=== PATIENT | female | born 1935 | race Caucasian/White ===

== ENCOUNTER 2022-12-26 09:14 | Inpatient (IN) | payer OTHER, MEDICAID ==
[~2022-12-26] VITALS: Ht 172.7 cm; Wt 113.0 kg
[~2022-12-26 09:14] MED LIST: ASPI-543 PO; ATOR20TA50 PO; CARB200T4 PO; FLUT0.05 NAS; FURO20TA3 PO; GLIP2.5T9 PO; HYDR-4296 PO; INSUINJ37 SC; IPRA0.00 IN; LOSA50TA46 PO; MECL1TAB32 PO; POTA10TA51 PO; TRAM50TA2 PO
[2022-12-26 09:57] VITALS: RESP 15; O2SAT 98
[2022-12-26 10:55] LABS: Potassium 4.4 mmol/L (3.5-5.1)
[2022-12-26 11:01] LABS: Albumin 3.4 g/dL (3.4-5.0); BUN/Creatinine Ratio 33.1 (10.0-20.0); Bilirubin, Total 0.8 mg/dL (0.2-1.0); Total Protein 6.6 g/dL (6.4-8.2)
[2022-12-26 11:02] LABS: Basophils # (auto) 0.1 10 ^3/uL (0-0.2); Basophils % (auto) 0.4 % (0.0-2.0); Eosinophils # (auto) 0.3 10 ^3/uL (0-0.8); Eosinophils % (auto) 2.1 % (0.0-7.0); Hematocrit 42.9 % (36.0-46.0); Hemoglobin 13.3 g/dL (12.2-16.2); Lymphocytes % (auto) 23.1 % (10.0-50.0); Mean Corpuscular Hgb Conc. 31.1 g/dL (32.0-36.0); Mean Corpuscular Volume 93.3 fL (80.0-100.0); Monocytes # (auto) 1.6 10 ^3/uL (0-1.3); Neutrophils # (auto) 8.2 10 ^3/uL (1.6-8.6); Neutrophils % (auto) 62.4 % (37.0-80.0); Nucleated Red Blood Cells % 0.1 %; Red Cell Distribution Width 16.3 % (11.8-14.3); White Blood Cell 13.2 10^3/uL (4.4-10.8)
[2022-12-26 11:31] LABS: INR 1.09 (0.9-1.15); Partial Thromboplastin Time 23.6 SEC (24.5-34.5); Prothrombin Time 11.4 sec (9.3-11.8)
[2022-12-26] MEDS ORDERED: NITROGLYCERIN 0.4 MG SL TAB SL PRN ×2 (12:15→12:45)
[2022-12-26] MEDS ORDERED: MORPHINE SULFATE INJ 2 MG/ml SYRG IV PRN ×2 (12:15→12:45)
[2022-12-26] MEDS ORDERED: DEXTROSE (50%) 50ML SYRG IV PRN (12:15)
[2022-12-26] MEDS ORDERED: SODIUM CHLORIDE 0.9% 1,000 ML IV ONE (13:00)
[2022-12-26] MEDS ORDERED: hydrALAZINE HCL 20 MG/ML VL IV PRN (13:00)
[2022-12-26] MEDS: SODIUM CHLORIDE 0.9% 1,000 ML IV SCH ×2 (13:00→23:20)
[2022-12-26 13:12] LABS: Cholesterol 91 mg/dL (< 200); Triglycerides 191 mg/dL (< 150)
[2022-12-26 13:15] LABS: HDL Cholesterol 42 mg/dL (40-59); LDL Cholesterol 38 mg/dL (< 100)
[2022-12-26] MEDS ORDERED: ACETAMINOPHEN 325 MG TAB PO PRN (13:15)
[2022-12-26] MEDS ORDERED: ONDANSETRON HCL 4 MG/2 ML VIAL IV PRN (13:15)
[2022-12-26] MEDS: InsuLIN REG 1unit/0.01ml Soln (100units/ml) SC SCH ×2 (17:15→22:21)
[2022-12-26] MEDS: ACCU-CHEK COMFORT CURVE STRIP VI SCH ×2 (17:18→22:20)
[2022-12-26 17:28] LABS: COVID19 ANTIGEN SOFIA FIA NEGATIVE (NEGATIVE)
[2022-12-26 20:10] VITALS: PULSE 83; RESP 22; O2SAT 97
[2022-12-27 06:08] LABS: Basophils # (auto) 0 10 ^3/uL (0-0.2); Basophils % (auto) 0.2 % (0.0-2.0); Eosinophils # (auto) 0.3 10 ^3/uL (0-0.8); Eosinophils % (auto) 3.3 % (0.0-7.0); Hematocrit 35.7 % (36.0-46.0); Hemoglobin 11.7 g/dL (12.2-16.2); Lymphocytes # (auto) 2.8 10 ^3/uL (0.4-5.4); Lymphocytes % (auto) 29.2 % (10.0-50.0); Mean Corpuscular Hemoglobin 30.1 pg (28.0-32.0); Mean Corpuscular Hgb Conc. 32.7 g/dL (32.0-36.0); Mean Corpuscular Volume 92.1 fL (80.0-100.0); Monocytes # (auto) 1.2 10 ^3/uL (0-1.3); Monocytes % (auto) 12.3 % (0.0-12.0); Neutrophils # (auto) 5.2 10 ^3/uL (1.6-8.6); Nucleated Red Blood Cells % 0.1 %; Red Blood Cells 3.88 10^6/uL (4.0-5.20); Red Cell Distribution Width 15.7 % (11.8-14.3); White Blood Cell 9.5 10^3/uL (4.4-10.8)
[2022-12-27 06:23] LABS: Albumin 2.9 g/dL (3.4-5.0); Calcium 8.4 mg/dL (8.5-10.1); Magnesium 2.3 mg/dL (1.6-2.6); Potassium 4.4 mmol/L (3.5-5.1)
[2022-12-27 06:28] LABS: BUN/Creatinine Ratio 34.3 (10.0-20.0); Bilirubin, Total 0.6 mg/dL (0.2-1.0); Total Protein 5.8 g/dL (6.4-8.2)
[2022-12-27] MEDS: InsuLIN REG 1unit/0.01ml Soln (100units/ml) SC SCH ×3 (06:45→17:22)
[2022-12-27] MEDS: ACCU-CHEK COMFORT CURVE STRIP VI SCH ×3 (06:45→17:24)
[2022-12-27 07:55] VITALS: PULSE 71; RESP 13; O2SAT 99
[2022-12-27] MEDS ORDERED: CLOPIDOGREL BISULFATE 75 MG TAB PO SCH (10:00)
[2022-12-27] MEDS ORDERED: METOPROLOL SUCCINATE XL 50 MG TAB PO SCH (10:00)
[2022-12-27] MEDS ORDERED: LOSARTAN POTASSIUM 50 MG TAB PO SCH (10:00)
[2022-12-27] MEDS ORDERED: FUROSEMIDE 20 MG TAB PO SCH (10:00)
[2022-12-27] MEDS: SODIUM CHLORIDE 0.9% 1,000 ML IV SCH ×2 (10:08→19:00)
[2022-12-27 19:30] VITALS: PULSE 68; RESP 16; O2SAT 95
[2022-12-27 21:00] VITALS: BP 158/61; PULSE 65; RESP 16; TEMP 98.3; O2SAT 96
== END 2022-12-27 21:25 | disposition home or self-care (01) | DRG 913 ==
LOC: ER 09:14 → EDBD 09:14 → TELE 12:15
PROVIDERS: ADMIT Internal Medicine Geriatric Medicine; ATTEND Internal Medicine Geriatric Medicine
DX: S09.90XA Unspecified injury of head, initial encounter (principal); N17.0 Acute kidney failure with tubular necrosis; E44.1 Mild protein-calorie malnutrition; S80.212A Abrasion, left knee, initial encounter; S00.31XA Abrasion of nose, initial encounter; Z20.822 Contact with and (suspected) exposure to COVID-19; W18.39XA Other fall on same level, initial encounter; E11.65 Type 2 diabetes mellitus with hyperglycemia; E78.5 Hyperlipidemia, unspecified; I50.9 Heart failure, unspecified; I11.0 Hypertensive heart disease with heart failure; Z88.0 Allergy status to penicillin; Z79.899 Other long term (current) drug therapy; Z79.4 Long term (current) use of insulin; Z68.37 Body mass index [BMI] 37.0-37.9, adult; Z83.3 Family history of diabetes mellitus; Z82.49 Family history of ischemic heart disease and other diseases of the circulatory system; Y93.89 Activity, other specified; Y92.89 Other specified places as the place of occurrence of the external cause; Y99.8 Other external cause status; Z86.73 Personal history of transient ischemic attack (TIA), and cerebral infarction without residual deficits
CPT/HCPCS: 36415; 70450; 70486; 71045; 72192; 73700; 80053; 80061; 82962; 83036; 83735; 83880; 84443; 84484; 85025; 85610; 85730; 87426; 93005; 93886; 96360; 97163; G0378; J1815

== ENCOUNTER 2023-11-07 13:00 | Inpatient (IN) | payer OTHER, MEDICAID ==
[~2023-11-07] VITALS: Ht 167.6 cm; Wt 96.3 kg
[2023-11-07] VITALS (11 sets, daily range): BP systolic 59–130; BP diastolic 26–57; PULSE 61–105; RESP 17–24; TEMP 98.8; O2SAT 96–100
[~2023-11-07 13:00] MED LIST changes: -HYDR-4296 PO; +HYDR25TA88 PO; +LOSA-534 PO; -LOSA50TA46 PO; +MECL-90 PO; -MECL1TAB32 PO; +POTA-36 PO; -POTA10TA51 PO
[2023-11-07] MEDS: ETOMIDATE (2MG/ML) 20ML VIAL IV ONE (13:03)
[2023-11-07] MEDS: ROCURONIUM 10MG/ML 10ML VIAL IV ONE (13:03)
[2023-11-07] MEDS ORDERED: SODIUM CHLORIDE 0.9% 1,000 ML IV ONE (13:30)
[2023-11-07] MEDS: NOREPINEPHRINE 8 MG/250ML KIT 250 ML IV ONE (13:42)
[2023-11-07] MEDS: SODIUM CHLORIDE 0.9% 1,000 ML IV ONE (13:44)
[2023-11-07] MEDS: MIDAZOLAM DRIP 50 mg/50mL 50 ML IV SCH (13:45)
[2023-11-07] MEDS: fentaNYL Drip 2500mCg/250mlNS 250 ML IV SCH (13:45)
[2023-11-07] MEDS: levoFLOXacin 750MG 150 ML IV ONE (13:48)
[2023-11-07 13:56] LABS: Basophils # (auto) 0 10 ^3/uL (0-0.2); Basophils % (auto) 0.3 % (0.0-2.0); Eosinophils # (auto) 0.3 10 ^3/uL (0-0.8); Eosinophils % (auto) 5.4 % (0.0-7.0); Lymphocytes # (auto) 2.3 10 ^3/uL (0.4-5.4); Lymphocytes % (auto) 41.6 % (10.0-50.0); Mean Corpuscular Hemoglobin 31.9 pg (28.0-32.0); Mean Corpuscular Hgb Conc. 31.7 g/dL (32.0-36.0); Mean Corpuscular Volume 100.8 fL (80.0-100.0); Monocytes # (auto) 0.1 10 ^3/uL (0-1.3); Monocytes % (auto) 2.3 % (0.0-12.0); Neutrophils # (auto) 2.8 10 ^3/uL (1.6-8.6); Neutrophils % (auto) 50.4 % (37.0-80.0); Nucleated Red Blood Cells % 0.2 %; Red Blood Cells 4.07 10^6/uL (4.0-5.20); Red Cell Distribution Width 17.1 % (11.8-14.3); White Blood Cell 5.6 10^3/uL (4.4-10.8)
[2023-11-07 14:15] LABS: Alanine Aminotransferase 24 U/L (7-40); Albumin 3.9 g/dL (3.2-4.8); Alkaline Phosphatase 74 U/L (46-116); Anion Gap 9 (5-15); Aspartate Aminotransferase 32 U/L (13-40); BUN/Creatinine Ratio 27.8 (10.0-20.0); Bilirubin, Total 0.3 mg/dL (0.2-1.0); Blood Urea Nitrogen 57 mg/dL (9-23); Calcium 9.7 mg/dL (8.5-10.1); Carbon Dioxide 22 mmol/L (20-30); Chloride 107 mmol/L (98-107); Glucose 191 mg/dL (74-106); Potassium 4.1 mmol/L (3.5-5.1); Sodium 138 mmol/L (136-145); Total Protein 6.2 g/dL (5.7-8.2)
[2023-11-07] MEDS: NOREPINEPHRINE 8 MG/250ML KIT 250 ML IV SCH (14:15)
[2023-11-07 15:02] LABS: Base Excess -8.5 mmol/L (-2.0-2.0)
[2023-11-07 15:12] LABS: Lactic Acid w/Reflex 3.6 mmol/L (0.4-2.0)
[2023-11-07] MEDS ORDERED: NITROGLYCERIN 0.4 MG SL TAB SL PRN (15:45)
[2023-11-07] MEDS ORDERED: MORPHINE SULFATE INJ 2 MG/ml SYRG IV PRN (15:45)
[2023-11-07] MEDS ORDERED: ONDANSETRON HCL 4 MG/2 ML VIAL IV PRN (15:45)
[2023-11-07] MEDS ORDERED: ACETAMINOPHEN 325 MG TAB PO PRN (15:45)
[2023-11-07 16:06] LABS: Base Excess -10.4 mmol/L (-2.0-2.0)
[2023-11-07] MEDS ORDERED: ALL100T PO (16:13)
[2023-11-07] MEDS ORDERED: MET25T PO (16:13)
[2023-11-07] MEDS ORDERED: LISI20TA56 PO (16:21)
[2023-11-07] MEDS ORDERED: B-COCAP34 OR (16:21)
[2023-11-07] MEDS ORDERED: RIVA10TA PO (16:21)
[2023-11-07] MEDS ORDERED: CALC500T30 PO (16:21)
[2023-11-07] MEDS ORDERED: EZET10TA22 PO (16:21)
[2023-11-07] MEDS ORDERED: ESCI5TAB PO (16:21)
[2023-11-07] MEDS ORDERED: PANT40TA2 PO (16:21)
[2023-11-07] MEDS ORDERED: TRAZ-181 PO (16:21)
[2023-11-07] MEDS ORDERED: SEMA2INJ3 SC (16:21)
[2023-11-07] MEDS ORDERED: GABA300T4 PO (16:21)
[2023-11-07] MEDS ORDERED: LEVO25TA2 PO (16:21)
[2023-11-07] MEDS: VASOPRESSIN 20 UNITS in SODIUM CHL 0.9% 99 ML IV SCH (16:22)
[2023-11-07] MEDS: VASOPRESSIN 20 UNIT/ML ONE (16:23)
[2023-11-07] MEDS: SODIUM CHLORIDE 0.9% 1,000 ML IV SCH (16:27)
[2023-11-07] MEDS: PHENYLEPHRINE IV 250 ML IV ONE (16:42)
[2023-11-07] MEDS: PHENYLEPHRINE IV 250 ML IV SCH (16:45)
[2023-11-07] MEDS: SODIUM BICARB 8.4% 50Meq/50ml SYR Vial IV ONE (18:06)
[2023-11-07] MEDS ORDERED: DEXTROSE (50%) 50ML SYRG IV PRN (18:30)
[2023-11-07 18:48] LABS: Urine Amorphous Crystal FEW /hpf (None Seen); Urine Bacteria MANY /hpf (None Seen); Urine Blood Negative /uL (Negative); Urine Clarity Turbid (Clear); Urine Color Yellow (Yellow); Urine Hyaline Cast FEW /lpf (0 - 2); Urine Mucus FEW (None Seen); Urine Protein, UAD 1+ (Negative); Urine Specific Gravity 1.013 (1.001-1.035); Urine Urobilinogen Normal (Negative); Urine WBC 65 /hpf (0 - 5); Urine pH 5.5 (5.0-9.0)
[2023-11-07] MEDS: SODIUM BICARB 50mEq/50ml Vial 75 ML in D5W 5% 1,000 ML IV SCH (18:55)
[2023-11-07] MEDS: ALBUTEROL SULF 2.5 MG/0.5ML(0.5%) NEB SOLN ONE (19:06)
[2023-11-07] MEDS: IPRATROPIUM BROM 0.5 MG/2.5ML INH SOL ONE (19:06)
[2023-11-07] MEDS: ALBUTEROL SULF 2.5 MG/0.5ML(0.5%) NEB SOLN NEB SCH (19:11)
[2023-11-07] MEDS: IPRATROPIUM BROM 0.5 MG/2.5ML INH SOL NEB SCH (19:11)
[2023-11-07] MEDS ORDERED: MEROPENEM 1GM IVPB 50 ML IV ONE (20:15)
[2023-11-07] MEDS: InsuLIN REG 1unit/0.01ml Soln (100units/ml) SC SCH (21:00)
[2023-11-07] MEDS: ACCU-CHEK COMFORT CURVE STRIP VI SCH (21:17)
[2023-11-07 21:21] LABS: Basophils # (auto) 0 10 ^3/uL (0-0.2); Eosinophils # (auto) 0 10 ^3/uL (0-0.8); Lymphocytes # (auto) 1.1 10 ^3/uL (0.4-5.4); Lymphocytes % (auto) 11.7 % (10.0-50.0); Mean Corpuscular Volume 103.1 fL (80.0-100.0)
[2023-11-07 21:23] LABS: Basophils % (auto) 0.3 % (0.0-2.0); Eosinophils % (auto) 0.4 % (0.0-7.0); Hematocrit 45.4 % (36.0-46.0); Hemoglobin 14.2 g/dL (12.2-16.2); Mean Corpuscular Hemoglobin 32.2 pg (28.0-32.0); Mean Corpuscular Hgb Conc. 31.3 g/dL (32.0-36.0); Monocytes % (auto) 10.7 % (0.0-12.0); Neutrophils # (auto) 7.3 10 ^3/uL (1.6-8.6); Neutrophils % (auto) 76.9 % (37.0-80.0); Nucleated Red Blood Cells % 0.4 %; Red Cell Distribution Width 17.3 % (11.8-14.3); White Blood Cell 9.5 10^3/uL (4.4-10.8)
[2023-11-07 21:52] LABS: Alanine Aminotransferase 33 U/L (7-40); Albumin 3.7 g/dL (3.2-4.8); Alkaline Phosphatase 78 U/L (46-116); Anion Gap 15 (5-15); Aspartate Aminotransferase 71 U/L (13-40); BUN/Creatinine Ratio 22.9 (10.0-20.0); Bilirubin, Total 0.6 mg/dL (0.2-1.0); Blood Urea Nitrogen 52 mg/dL (9-23); Calcium 9.6 mg/dL (8.7-10.4); Carbon Dioxide 17 mmol/L (20-30); Chloride 107 mmol/L (98-107); Glucose 232 mg/dL (74-106); Potassium 4.4 mmol/L (3.5-5.1); Sodium 139 mmol/L (136-145); Total Protein 6.2 g/dL (5.7-8.2)
[2023-11-08] VITALS (89 sets, daily range): BP systolic 75–201; BP diastolic 36–176; PULSE 60–109; RESP 9–43; TEMP 93.9–99.1; O2SAT 45–100
[2023-11-08 04:09] LABS: Hematocrit 40.9 % (36.0-46.0); Mean Corpuscular Hgb Conc. 31.8 g/dL (32.0-36.0); White Blood Cell 7.6 10^3/uL (4.4-10.8)
[2023-11-08 04:13] LABS: Mean Corpuscular Hemoglobin 32.8 pg (28.0-32.0); Mean Corpuscular Volume 103.4 fL (80.0-100.0); Red Blood Cells 3.96 10^6/uL (4.0-5.20); Red Cell Distribution Width 17.1 % (11.8-14.3)
[2023-11-08 04:18] LABS: Basophils % (manual) 0 (0.0-2.0); Blast Cells 0; Eosinophils % (manual) 0 (0-7); Myelocytes % 0; Promyelocytes % 0
[2023-11-08 04:23] LABS: Alanine Aminotransferase 29 U/L (7-40); Albumin 3.1 g/dL (3.2-4.8); Alkaline Phosphatase 58 U/L (46-116); Anion Gap 14 (5-15); Aspartate Aminotransferase 55 U/L (13-40); BUN/Creatinine Ratio 20.9 (10.0-20.0); Blood Urea Nitrogen 53 mg/dL (9-23); Calcium 8.5 mg/dL (8.5-10.1); Carbon Dioxide 17 mmol/L (20-30); Chloride 107 mmol/L (98-107); Glucose 334 mg/dL (74-106); Potassium 4.1 mmol/L (3.5-5.1); Sodium 138 mmol/L (136-145)
[2023-11-08 04:29] LABS: Bilirubin, Total 0.3 mg/dL (0.2-1.0)
[2023-11-08 05:45] LABS: Anisocytosis Slight; Band Neutrophils % (manual) 29; Lymphocytes % (manual) 20 (10.0-50.0); Macrocytosis Slight; Metamyelocytes % 1; Monocytes % (manual) 12 (0-12); Platelet Estimate Adequate; Reactive Lymphocytes 1
[2023-11-08 05:46] LABS: Large Platelets FEW
[2023-11-08] MEDS: MEROPENEM 1GM IVPB 50 ML IV SCH (08:10)
[2023-11-08 08:20] LABS: Base Excess -10.9 mmol/L (-2.0-2.0)
[2023-11-08] MEDS ORDERED: levoFLOXacin 500MG 100 ML IV SCH (10:00)
[2023-11-08] MEDS: PANTOPRAZOLE 40 MG/10 ML VIAL INJ IV ONE (11:11)
[2023-11-08 11:33] LABS: Base Excess -10.4 mmol/L (-2.0-2.0)
[2023-11-08] MEDS: SODIUM BICARB 8.4% 50Meq/50ml SYR Vial IV ONE ×2 (11:45→12:15)
[2023-11-08] MEDS: SODIUM BICARB 50mEq/50ml Vial 150 ML in D5W 5% 1,000 ML IV SCH (12:32)
[2023-11-08] MEDS: HYDROCORTISONE SOD SUCC 100 MG/2ML INJ VIAL IV SCH (14:02)
[2023-11-08] MEDS: NOREPINEPHRINE BITARTRATE 32 MG in SODIUM CHL 0.9% 218 ML IV SCH (14:58)
[2023-11-08] MEDS: PHENYLEPHRINE INJ 80 MG in SODIUM CHL 0.9% 242 ML IV SCH (17:30)
[2023-11-08] MEDS: EPINEPHrine HCL 250 ML IV SCH (17:30)
[2023-11-08 18:18] LABS: Base Excess -4.9 mmol/L (-2.0-2.0)
[2023-11-08] MEDS: LORazepam 2MG/ML-1ML VIAL IV SCH (19:04)
[2023-11-08] MEDS: MORPHINE SULFATE INJ 2 MG/ml SYRG IV PRN (19:06)
[2023-11-09] MEDS ORDERED: ASPirin 81 mg TAB PO SCH (10:00)
[2023-11-09] MEDS ORDERED: ENOXAPARIN SOD 30 MG/0.3 ML SYRINGE SC SCH (10:00)
[2023-11-09] MEDS ORDERED: PANTOPRAZOLE 40 MG/10 ML VIAL INJ IV SCH (10:00)
== END 2023-11-08 23:30 | DRG 208 ==
LOC: EDBD 13:00 → ER 13:00 → TELE 15:32 → ICU WEST 15:32
PROVIDERS: ADMIT Nurse Practitioner Family; ATTEND Internal Medicine Geriatric Medicine
PROC: 0BH17EZ Insertion of Endotracheal Airway into Trachea, Via Natural or Artificial Opening (ICD-10-PCS; principal; 2023-11-07)
PROC: 5A1945Z Respiratory Ventilation, 24-96 Consecutive Hours (ICD-10-PCS; 2023-11-07)
PROC: 05HY33Z Insertion of Infusion Device into Upper Vein, Percutaneous Approach (ICD-10-PCS; 2023-11-07)
PROC: B544ZZA Ultrasonography of Left Jugular Veins, Guidance (ICD-10-PCS; 2023-11-07)
DX: J96.21 Acute and chronic respiratory failure with hypoxia (principal); A41.9 Sepsis, unspecified organism; G93.41 Metabolic encephalopathy; R65.21 Severe sepsis with septic shock; I50.33 Acute on chronic diastolic (congestive) heart failure; N17.9 Acute kidney failure, unspecified; N39.0 Urinary tract infection, site not specified; I13.0 Hypertensive heart and chronic kidney disease with heart failure and stage 1 through stage 4 chronic kidney disease, or unspecified chronic kidney disease; J96.22 Acute and chronic respiratory failure with hypercapnia; E11.65 Type 2 diabetes mellitus with hyperglycemia; J44.9 Chronic obstructive pulmonary disease, unspecified; E78.2 Mixed hyperlipidemia; E03.9 Hypothyroidism, unspecified; F03.90 Unspecified dementia, unspecified severity, without behavioral disturbance, psychotic disturbance, mood disturbance, and anxiety; I27.20 Pulmonary hypertension, unspecified; W01.0XXA Fall on same level from slipping, tripping and stumbling without subsequent striking against object, initial encounter; N18.30 Chronic kidney disease, stage 3 unspecified; E11.22 Type 2 diabetes mellitus with diabetic chronic kidney disease; G40.909 Epilepsy, unspecified, not intractable, without status epilepticus; S00.03XA Contusion of scalp, initial encounter; E66.9 Obesity, unspecified; Z68.34 Body mass index [BMI] 34.0-34.9, adult; Z88.0 Allergy status to penicillin; Z79.899 Other long term (current) drug therapy; Z79.82 Long term (current) use of aspirin; Z79.4 Long term (current) use of insulin; Z86.73 Personal history of transient ischemic attack (TIA), and cerebral infarction without residual deficits; Z82.49 Family history of ischemic heart disease and other diseases of the circulatory system; Z79.01 Long term (current) use of anticoagulants; Z85.828 Personal history of other malignant neoplasm of skin; I25.2 Old myocardial infarction; Z99.81 Dependence on supplemental oxygen; Z95.0 Presence of cardiac pacemaker; Y93.89 Activity, other specified; Y99.8 Other external cause status; Y92.008 Other place in unspecified non-institutional (private) residence as the place of occurrence of the external cause
CPT/HCPCS: 36415; 36600; 70450; 71045; 80053; 81001; 82805; 82962; 83036; 83605; 83880; 84443; 84484; 85007; 85025; 85027; 85379; 86850; 86900; 86901; 87040; 87070; 87077; 87081; 87086; 87186; 87205; 87493; 93005; 93306; 94002; 94003; 94640; 99291; C9113; G0378; J1815; J1956; J2185